=== PATIENT | male | born 1950 | race Caucasian/White ===

== ENCOUNTER 2019-10-06 14:26 | Emergency (ER) | payer MEDICARE ==
[~2019-10-06] VITALS: Ht 172.7 cm; Wt 86.2 kg
[2019-10-06] MEDS ORDERED: PACERONE200 MG PO (14:33)
[2019-10-06] MEDS ORDERED: LIPITOR40 MG PO (14:33)
[2019-10-06] MEDS ORDERED: METOPROLOL TART25 MG PO (14:34)
[2019-10-06] MEDS ORDERED: TYLENOL325 MG PO (14:35)
[2019-10-06] MEDS ORDERED: ACETAMINOPHEN500 M1 PO (14:35)
[2019-10-06] MEDS ORDERED: IPRAT-ALBUT 0.5-3 ML INH (14:36)
[2019-10-06] MEDS ORDERED: ZOFRAN4 MG PO (14:36)
[2019-10-06 14:41] LABS: ABSOLUTE LYMPHOCYTES 1.7 thou/uL (0.8-5.3); ABSOLUTE MONOCYTES 0.5 thou/uL (0.0-1.2); ABSOLUTE NEUTROPHILS 8.6 thou/uL (1.6-8.1); BASOPHILS 0.4 %; EOSINOPHILS 0.1 %; HEMATOCRIT 43.4 % (42.0-52.0); HEMOGLOBIN 14.7 gm/dL (14.0-18.0); LYMPHOCYTES 15.9 %; MCH 31.4 pg (26.0-34.0); MCHC 33.9 g/dL (28.0-37.0); MCV 92.5 fL (80.0-100.0); MONOCYTES 4.7 %; MPV 8.2 fl. (7.2-11.1); NUCLEATED RBCS 0 /100WBC; PLATELET COUNT* 342 thou/uL (150-400); POLYS 78.9 %; RBC 4.69 mil/uL (4.50-6.00); RDW-CV 16.1 % (10.5-14.5); WBC 10.9 thou/uL (4.0-11.0)
[2019-10-06 14:49] LABS: CALCIUM 9.7 mg/dL (8.5-10.1); CREATININE 1.1 mg/dL (0.6-1.3); POTASSIUM 4.5 mmol/L (3.5-5.1)
[2019-10-06 14:53] LABS: ALBUMIN 3.6 g/dL (3.4-5.0); TOTAL BILIRUBIN 0.4 mg/dL (<0.1-1.0); TOTAL PROTEIN 7.7 g/dL (6.4-8.2)
[2019-10-06 17:09] VITALS: BP 140/81
--- NOTE | 2019-10-07 12:19 | EKG ---
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: : 1950 Requested By: Omid Mcclellan Order Number: [id number] MD: Jeffery Sykes Measurements Intervals [place]le Rate: 66 P: 51 VT: 159 QRS: 2 QRSD: 87 T: 58 QT: 413 QTc: 433 Interpretive Statements Sinus rhythm Abnormal R-wave progression, early transition Baseline wander in lead(s) V5 No previous ECG available for comparison Electronically Signed On 10-07-2019 12:18:22 PAVER by Jeffery Sykes [email or web address] <ELECTRONICALLY SIGNED> By: Jeffery Sykes MD, FAC 10/07/19 1218 1446 1446 Jeffery Sykes MD, [facility] /EPI
== END 2019-10-06 17:10 | disposition short-term general hospital (02) ==
LOC: M.ERS 14:26
PROVIDERS: Family Medicine
DX: S06.5X0A Traumatic subdural hemorrhage without loss of consciousness, initial encounter (principal); R56.9 Unspecified convulsions; Z88.6 Allergy status to analgesic agent; X58.XXXA Exposure to other specified factors, initial encounter; Y93.89 Activity, other specified; Y92.89 Other specified places as the place of occurrence of the external cause; Y99.8 Other external cause status